=== PATIENT | male | born 2000 | race Caucasian/White ===

== ENCOUNTER 2025-01-22 14:15 | Emergency (ER) | payer SELFPAY ==
[2025-01-22 14:14] VITALS: BP 157/85; PULSE 82; RESP 16; TEMP 36.9; O2SAT 97; BMI 24.1
[2025-01-22 14:20] VITALS: BP 154/82; PULSE 80; RESP 16; TEMP 36.9; O2SAT 98
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
[2025-01-22 14:27] LABS: Hematocrit 46.6 % (42.0-52.0); Hemoglobin 16.3 g/dL (14.1-18.0); Immature Granulocytes % 0.2 %; Mean Corpuscular HGB Conc 35.0 g/dL (31.8-35.4); Mean Corpuscular Hemoglobin 30.4 pg (27.0-31.2); Mean Corpuscular Volume 86.8 fl (80-94); Nucleated Red Blood Cells % 0 %; Platelet Count 282 K/mm3 (142-424); Red Blood Count 5.37 M/mm3 (4.60-6.20); Red Cell Distribution Width-SD 38.2 fL; White Blood Count 6.1 K/mm3 (4.8-10.8)
[2025-01-22 14:30] VITALS: BP 146/84; PULSE 82; RESP 16; O2SAT 97
[2025-01-22 14:34] LABS: Albumin Level 4.6 g/dl (3.5-5.0); Chloride 102 mmol/L (98-107); Potassium 4.1 mmoL/L (3.5-5.1); Sodium 139 mmol/L (136-145)
[2025-01-22 14:37] LABS: Alanine Aminotransferase 35 U/L (12-78); Albumin/Globulin Ratio 1.6 (1.1-1.8); Alkaline Phosphatase 133 U/L (38-126); Anion Gap 12.1 mEq/L (5-15); Aspartate Amino Transferase 31 U/L (17-59); Bilirubin,Total 0.6 mg/dl (0.2-1.3); Blood Urea Nitrogen 20 mg/dl (9-20); Calcium 9.6 mg/dl (8.4-10.2); Carbon Dioxide 29 mmol/L (22.0-30.0); Creatinine,Serum 1.10 mg/dl (0.66-1.25); Estimated Glomerular Filt Rate 83 ml/min (>60); GFR (African American) 100 ML/MIN (>60); Globulin 2.9 g/dL (1.3-3.2); Glucose 128 mg/dl (74-100); Total Protein,Serum 7.5 g/dl (6.3-8.2)
[2025-01-22 14:40] LABS: Activated Partial Thrombo Time 23.4 seconds (22.8-30.6); INR 0.99 (0.9-1.1); Prothrombin Time 11.0 seconds (10.1-12.5)
[2025-01-22] MEDS: 0.9 % SODIUM CHLORIDE 50 ML VIAL 40 ML IV ×2 (14:53→14:54)
[2025-01-22] MEDS: SODIUM CHLORIDE 0.9% 10ML SYR (RAD ONLY) 10 ML IV (14:53)
[2025-01-22] MEDS: IOPAMIDOL-370 (76%);100ML BOTTLE 60 ML IV (14:54)
[2025-01-22] MEDS: IOPAMIDOL-370 (76%);100ML BOTTLE 100 ML IV (14:54)
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
[2025-01-22 15:01] VITALS: BP 149/73; PULSE 86; O2SAT 99
[2025-01-22] MEDS: TET/DIPHTH/PERT-ADULT 0.5ML SYRINGE 0.5 ML IM (15:26)
[2025-01-22] MEDS: 0.9 % SODIUM CHLORIDE 1000ML 1,000 ML 999 ML IV (15:26)
[2025-01-22 16:45] VITALS: BP 149/73; PULSE 86; RESP 16; TEMP 36.9; O2SAT 99
== END 2025-01-22 16:50 | disposition home or self-care (01) ==
PROVIDERS: Emergency Provider Student in an Organized Health Care Education/Training Program
DX: S20.213A Contusion of bilateral front wall of thorax, initial encounter (principal); S01.81XA Laceration without foreign body of other part of head, initial encounter; S80.211A Abrasion, right knee, initial encounter; R22.1 Localized swelling, mass and lump, neck; V95.2 Other private fixed-wing aircraft accident injuring occupant
CPT/HCPCS: 12011; 70450; 70486; 70496; 70498; 71275; 72125; 72128; 72131; 74174; 80053; 85025; 85610; 85730; 90471; 90715; 93005; 96360; 99285; 99291; J2004; J7030; Q9967